=== PATIENT | female | born 1950 | race Caucasian/White ===

== ENCOUNTER 2020-05-23 20:16 | Observation (INO) | payer MEDICARE ==
[~2020-05-23] VITALS: Ht 160 cm; Wt 80.5 kg
[2020-05-23 20:28] VITALS: BP 139/62
[2020-05-23 21:01] LABS: BASO % 0.3 % (0.0-1.0); EOS # 0.1 10*3/uL (0.0-0.4); EOS % 1.2 % (1.0-4.0); HEMATOCRIT 43.5 % (37.0-47.0); LYMPH # 2.4 10*3/uL (1.3-4.4); LYMPH % 20.4 % (27.0-41.0); MEAN CELL VOLUME 95.8 fl (81.0-99.0); MEAN CORPUSCULAR HGB 30.6 pg (27.0-31.0); MEAN PLATELET VOLUME 9.8 fl (9.6-12.3); MONO % 8.2 % (3.0-9.0); NEUT # 7.9 10*3/uL (2.3-7.9); NEUT % 68.2 % (47.0-73.0); PLATELET COUNT AUTOMATED 279 10*3/uL (130-400); RED BLOOD COUNT 4.54 10*6/uL (4.10-5.10); RED CELL DISTRI WIDTH 13.1 % (0-14.5); WHITE BLOOD COUNT 11.6 10*3/uL (4.8-10.8)
[2020-05-23 21:14] LABS: ACT PARTIAL THROMBO TIME 23.2 SECONDS (20.0-32.1); INTERNATIONAL NORM RATIO 0.9 (2.0-3.5)
[2020-05-23 21:18] LABS: ALBUMIN 3.6 gm/dl (3.1-4.5); ALKALINE PHOSPHATASE 97 U/L (45-117); BUN 12 mg/dl (7-24); CHLORIDE 106 mmol/L (98-107); CREATININE 1.03 mg/dL (0.55-1.02); SGOT/AST 85 IU/L (3-35); SGPT/ALT 39 U/L (12-78); SODIUM 140 mmol/L (136-145); TOTAL PROTEIN 7.3 gm/dL (6.4-8.2)
[2020-05-23 21:28] LABS: POTASSIUM 4.5 mmol/L (3.5-5.1); TROPONIN I < 0.015 ng/ml (<0.045)
[2020-05-23 22:15] VITALS: BP 136/72
--- NOTE | 2020-05-23 22:15 | NUR ---
PT RESTING IN BED ON CELL PHONE. NO ACUTE DISTRESS AT THIS TIME. VOICES NO NEEDS AT THIS TIME. AWAKE AND ALERT
[2020-05-23 22:56] VITALS: BP 144/62
[2020-05-23 23:18] VITALS: BP 139/76
--- NOTE | 2020-05-23 23:18 | NUR ---
A 70, admitted to , under the services of AMNA Hogue DO with a diagnosis of SYNCOPE AND COLLAPSE. Chief complaint is FALL. Patient arrived via bed from ER. Monitor applied. Initial assessment completed. Vital signs taken and recorded. AMNA HOGUE DO notified of admission to the unit. Orders received. See assessment for past medical history, medications and allergies. Patient and/or family oriented to unit. [facility] visitation policy reviewed. Clothing/patient valuable form completed. AMBROSIO OCASIO
--- NOTE | 2020-05-23 23:37 | NUR ---
TYLENOL GIVEN PER ORDER FOR COMPLAINTS OF HEADACHE. WILL MONITOR
[2020-05-23] MEDS ORDERED: ZESTRIL10 MG PO (23:43)
[2020-05-23] MEDS ORDERED: MYRBETRIQ25 M1 PO (23:44)
--- NOTE | 2020-05-23 23:58 | NUR ---
DR. COX NOTIFIED OF COMPLETE MED REC
--- NOTE | 2020-05-24 00:30 | NUR ---
PER PT, TYLENOL EFFECITVE FOR HEADACHE
--- NOTE | 2020-05-24 05:20 | NUR ---
IN TO SEE PT. PT AWAKENS EASILY. VOICES NO COMPLAINTS. IV FLUIDS INFUSING WITHOUT DIFFICULTY. CALL LIGHT IN REACH
[2020-05-24 06:41] LABS: ALBUMIN 3.1 gm/dl (3.1-4.5); BUN 11 mg/dl (7-24); CHLORIDE 112 mmol/L (98-107); CHOLESTEROL 176 mg/dL (<200); CREATININE 0.89 mg/dL (0.55-1.02); SGOT/AST 553 IU/L (3-35); SGPT/ALT 361 U/L (12-78); SODIUM 142 mmol/L (136-145); TRIGLYCERIDES 85 mg/dl (<150); VLDL CHOLESTEROL 17 mg/dL (6-40)
[2020-05-24 06:45] LABS: BASO % 0.5 % (0.0-1.0); EOS # 0.1 10*3/uL (0.0-0.4); EOS % 1.2 % (1.0-4.0); HEMATOCRIT 40.1 % (37.0-47.0); LYMPH # 1.3 10*3/uL (1.3-4.4); LYMPH % 22.2 % (27.0-41.0); MEAN CELL VOLUME 94.4 fl (81.0-99.0); MEAN CORPUSCULAR HGB 29.9 pg (27.0-31.0); MEAN CORPUSCULAR HGB CONC 31.7 g/dl (33.0-37.0); MEAN PLATELET VOLUME 10.1 fl (9.6-12.3); MONO # 0.8 10*3/uL (0.1-1.0); NEUT # 3.6 10*3/uL (2.3-7.9); NEUT % 61.7 % (47.0-73.0); PLATELET COUNT AUTOMATED 258 10*3/uL (130-400); RED BLOOD COUNT 4.25 10*6/uL (4.10-5.10); WHITE BLOOD COUNT 5.8 10*3/uL (4.8-10.8)
[2020-05-24 06:48] LABS: ALKALINE PHOSPHATASE 131 U/L (45-117); FREE T4 1.08 ng/dl (0.76-1.46); HDL CHOLESTEROL 56 mg/dl (40-60); LDL CHOLESTEROL 103 mg/dL (9-159); THYROID STIM HORMONE (HS) 0.983 uIU/ml (0.358-4.75); TOTAL PROTEIN 6.1 gm/dL (6.4-8.2)
[2020-05-24 08:00] VITALS: BP 135/68
--- NOTE | 2020-05-24 08:11 | NUR ---
PT RESTING IN BED. NO DISTRESS NOTED. WILL MONITOR
[2020-05-24 08:19] LABS: VITAMIN D, 25-HYDROXY 39.6 ng/mL (30-100)
--- NOTE | 2020-05-24 09:00 | NUR ---
Curriculum Writer in to talk to patient. Patient states lives at home with her daughter and granddaughter. There are basement steps in the home. Physician: Dr. John Reddy Pharmacy: [facility] Home health services: none Patient's level of ADLs: INDEPENDENT Patient has working utilities: yes DME: none Follow-up physician's appointment after d/c: will be made by the hospitalist nurse director upon discharge Does patient want to access PORTAL?: no Discharge plan discussed with patient. She lives at home with her family. She is independent in her ADLs and ambulation. Discussed home health care services and she declines. She states she didn't even want to stay overnight and is ready to be discharged. She has an appt with Dr. Reddy on Jun 18 but if she needs one sooner she is sure she can get one. When medically stable she will be discharged to home. CM will continue to follow for any discharge planning needs. She states her daughter, Petra, will provide transportation on discharge. GILES KURTZ
[2020-05-24] MEDS ORDERED: ZOFRAN4 MG PO (11:14)
--- NOTE | 2020-05-24 11:55 | NUR ---
Discharge instructions reviewed with patient/family. Patient receptive and verbalizes understanding. Follow-up care arranged. Written instructions given to patient/family. LACEY HOLLAND
[2020-05-25 07:06] LABS: HEP B CORE AB, IGM Negative (Negative); HEPATITIS B SURFACE AG Negative (Negative); HEPATITIS C VIRUS ANTIBODY <0.1 s/co (0.0-0.9)
== END 2020-05-24 13:50 | disposition home or self-care (01) ==
LOC: ED 20:16 → EDHOLD 21:54 → 5E 22:53
PROVIDERS: Emergency Medicine; Internal Medicine; ADMIT Family Medicine; ATTEND Family Medicine
DX: R55 Syncope and collapse (principal); I10 Essential (primary) hypertension; N32.81 Overactive bladder; N17.0 Acute kidney failure with tubular necrosis; D72.829 Elevated white blood cell count, unspecified; R73.9 Hyperglycemia, unspecified; E83.41 Hypermagnesemia; R74.0 Nonspecific elevation of levels of transaminase and lactic acid dehydrogenase [LDH]; E87.8 Other disorders of electrolyte and fluid balance, not elsewhere classified; Z68.31 Body mass index [BMI] 31.0-31.9, adult